=== PATIENT | female | born 1960 | race Caucasian/White ===

== ENCOUNTER 2020-06-23 10:33 | Outpatient (CLI) | payer OTHER, SELFPAY ==
[2020-06-23 11:05] LABS: Hematocrit 38.3 % (37.0-47.0); Hemoglobin 12.5 g/dL (12.0-15.0); Mean Corpuscular HGB Conc 32.6 g/dl (32-36); Mean Corpuscular Hemoglobin 27.6 pg (26-34); Mean Corpuscular Volume 84.5 fl (80-100); Mean Platelet Volume 9.8 fl (7.4-10.4); Platelet Count Result 255 k/mm3 (150-375); Red Blood Count 4.53 M/mm3 (4.2-5.4); Red Cell Distribution Width 13.1 % (11.5-14.5); White Blood Count 6.1 K/mm3 (4.5-10.0)
[2020-06-23 11:16] LABS: Alanine Aminotransferase 32 U/L (4-35); Albumin Level 4.2 g/dL (3.5-5.1); Alkaline Phosphatase 79 U/L (38-126); Anion Gap 11 mmol/L (8-16); Aspartate Amino Transferase 29 U/L (14-36); Bilirubin,Total 0.3 mg/dL (0.2-1.3); Blood Urea Nitrogen 10 mg/dL (7-17); Calcium 9.9 mg/dL (8.4-10.2); Carbon Dioxide 24 mmol/L (22-30); Chloride 106 mmol/L (98-107); Cholesterol 178 mg/dL (0-200); Estimated Glomerular Filt Rate > 60; Glucose 110 mg/dL (65-105); HDL Direct 53 mg/dL; Sodium 141 mmol/L (137-145); Triglycerides 130 mg/dL (<150)
[2020-06-23 11:28] LABS: LDL Cholesterol Direct 116 mg/dL
[2020-06-23 11:31] LABS: Hemoglobin A1C 5.8 % (<5.7)
== END 2020-06-23 10:34 | disposition home or self-care (01) ==
LOC: ANHLAB 10:36
PROVIDERS: PCP Internal Medicine; Visit Provider Internal Medicine
DX: Z00.00 Encounter for general adult medical examination without abnormal findings (principal)
CPT/HCPCS: 36415; 80053; 80061; 83036; 84443; 85027

== ENCOUNTER 2020-07-23 09:16 | Outpatient (CLI) | payer OTHER, SELFPAY ==
--- NOTE | ~2020-07-23 | MM_ITS ---
EXAMINATION: MM screening [facility] BI w emanuel HISTORY: Screening mammogram TECHNIQUE: Craniocaudal and mediolateral oblique 3-D tomosynthesis images were obtained and synthetic 2-D images were generated. CAD analysis was submitted and interpreted. COMPARISON: 07/22/2019, 07/20/2018, 07/18/2017 BREAST PARENCHYMAL COMPOSITION: The breasts are almost entirely fatty. FINDINGS: There is no evidence of suspicious mass, calcification, or architectural distortion to sugg est malignancy in either breast. There has been no suspicious interval change. IMPRESSION: 1. No mammographic evidence of malignancy. 2. Recommend routine screening mammography in one year. BI-RADS Category 1: Negative Reviewed, dictated and finalized at location A.
== END 2020-07-23 09:17 | disposition home or self-care (01) ==
PROVIDERS: PCP Internal Medicine; Visit Provider Student in an Organized Health Care Education/Training Program
DX: Z12.31 Encounter for screening mammogram for malignant neoplasm of breast (principal)
CPT/HCPCS: 77063; 77067

== ENCOUNTER 2021-04-01 14:04 | Outpatient (CLI) | payer OTHER, SELFPAY ==
[2021-04-01 14:34] LABS: Hemoglobin 12.8 g/dL (12.0-15.0); Mean Corpuscular Hemoglobin 27.4 pg (26-34); Mean Corpuscular Volume 85.7 fl (80-100); Mean Platelet Volume 9.5 fl (7.4-10.4); Platelet Count Result 257 k/mm3 (150-375); Red Blood Count 4.67 M/mm3 (4.2-5.4); Red Cell Distribution Width 13.3 % (11.5-14.5); White Blood Count 7.6 K/mm3 (4.5-10.0)
[2021-04-01 14:44] LABS: Anion Gap 9 mmol/L (8-16); Blood Urea Nitrogen 15 mg/dL (7-17); Calcium 10.1 mg/dL (8.4-10.2); Carbon Dioxide 25 mmol/L (22-30); Chloride 104 mmol/L (98-107); Estimated Glomerular Filt Rate > 60; Glucose 101 mg/dL (65-105); Magnesium 1.9 mg/dL (1.6-2.3); Potassium 4.2 mmol/L (3.4-5.0); Sodium 138 mmol/L (137-145)
== END 2021-04-01 14:05 | disposition home or self-care (01) ==
LOC: ANHLAB 14:06
PROVIDERS: PCP Internal Medicine; Visit Provider Internal Medicine
DX: Z51.81 Encounter for therapeutic drug level monitoring (principal)
CPT/HCPCS: 36415; 80048; 83735; 84443; 85027

== ENCOUNTER 2021-07-27 16:09 | Outpatient (CLI) | payer OTHER, SELFPAY ==
--- NOTE | ~2021-07-27 | MM_ITS ---
EXAMINATION: MM screening [facility] BI w emanuel HISTORY: Screening TECHNIQUE: Craniocaudal and mediolateral oblique 3-D tomosynthesis images were obtained and synthetic 2-D images were generated. CAD analysis was submitted and interpreted. COMPARISON: Comparison to multiple prior studies sequentially, with oldest reviewed study dated 11/2014. BREAST PARENCHYMAL COMPOSITION: There are scattered areas of fibroglandular density. FINDINGS: There is no evidence of suspicious mass, calcification, or architectural distortion to sugg est malignancy in either breast. There has been no suspicious interval change. IMPRESSION: 1. No mammographic evidence of malignancy. 2. Recommend routine screening mammography in one year. BI-RADS Category 1: Negative Reviewed, dictated and finalized at location A.
== END 2021-07-27 16:10 | disposition home or self-care (01) ==
LOC: ANHIMG 16:13
PROVIDERS: PCP Internal Medicine; Visit Provider Student in an Organized Health Care Education/Training Program
DX: Z12.31 Encounter for screening mammogram for malignant neoplasm of breast (principal)
CPT/HCPCS: 77063; 77067

== ENCOUNTER 2022-07-12 06:57 | Outpatient (CLI) | payer OTHER, SELFPAY ==
[2022-07-12 07:32] LABS: Basophils Absolute Auto 0.1 K/mm3 (0.0-0.1); Basophils Percent Auto 1.1 % (0.2-1.2); Eosinophils Absolute Auto 0.2 K/mm3 (0-0.3); Eosinophils Percent Auto 2.8 % (0-4.4); Hematocrit 38.7 % (37.0-47.0); Hemoglobin 12.6 g/dL (12.0-15.0); Immature Granulocyte Absolute 0.06 K/mm3 (0.00-0.031); Immature Granulocyte Percent A 0.9 % (0-0.5); Lymphocytes Absolute Auto 1.84 K/mm3 (0.9-3.2); Lymphocytes Percent Auto 28.8 % (18.3-44.2); Mean Corpuscular HGB Conc 32.6 g/dl (32-36); Mean Platelet Volume 9.9 fl (7.4-10.4); Monocytes Absolute Auto 0.5 K/mm3 (0.1-0.6); Monocytes Percent Auto 7.5 % (2.6-8.5); Neutrophils Absolute Auto 3.8 K/mm3 (1.3-6.7); Neutrophils Percent Auto 58.9 % (45.5-73.1); Platelet Count Result 269 k/mm3 (150-375); Red Blood Count 4.66 M/mm3 (4.2-5.4); White Blood Count 6.4 K/mm3 (4.5-10.0)
[2022-07-12 07:34] LABS: Alanine Aminotransferase 36 U/L (6-35); Albumin Level 4.5 g/dL (3.5-5.1); Alkaline Phosphatase 81 U/L (38-126); Anion Gap 9 mmol/L (8-16); Aspartate Amino Transferase 31 U/L (14-36); Bilirubin,Total 0.3 mg/dL (0.2-1.3); Blood Urea Nitrogen 13 mg/dL (7-17); Calcium 9.6 mg/dL (8.4-10.2); Carbon Dioxide 24 mmol/L (22-30); Chloride 104 mmol/L (98-107); Cholesterol 181 mg/dL (0-200); Estimated Glomerular Filt Rate > 60; Glucose 120 mg/dL (65-110); HDL Direct 53 mg/dL; Potassium 4.1 mmol/L (3.4-5.0); Sodium 137 mmol/L (137-145); Triglycerides 145 mg/dL (<150)
[2022-07-12 07:45] LABS: LDL Cholesterol Direct 96 mg/dL
[2022-07-12 08:09] LABS: Free T4 Free Thyroxine 1.35 ng/mL (0.78-2.19)
[2022-07-12 08:15] LABS: Hemoglobin A1C 6.2 % (<5.7)
== END 2022-07-12 06:58 | disposition home or self-care (01) ==
PROVIDERS: PCP Internal Medicine; Visit Provider Internal Medicine
DX: Z00.00 Encounter for general adult medical examination without abnormal findings (principal)
CPT/HCPCS: 36415; 80053; 80061; 83036; 84439; 84443; 85025

== ENCOUNTER 2022-10-05 15:15 | Outpatient (CLI) | payer OTHER, SELFPAY ==
--- NOTE | ~2022-10-05 | MM_ITS ---
EXAMINATION: MM screening [facility] BI w emanuel HISTORY: Screening mammogram TECHNIQUE: Craniocaudal and mediolateral oblique 3-D tomosynthesis images were obtained and synthetic 2-D images were generated. CAD analysis was submitted and interpreted. COMPARISON: 07/27/2021, 07/23/2020, 07/22/2019 bilateral screening mammogram examinations BREAST PARENCHYMAL COMPOSITION: There are scattered areas of fibroglandular density. FINDINGS: There is no evidence of suspicious mass, calcification, or architectural distortion to sugg est malignancy in either breast. There has been no suspicious interval change. IMPRESSION: 1. No mammographic evidence of malignancy. 2. Recommend routine screening mammography in one year. BI-RADS Category 1: Negative Reviewed, dictated and finalized at location A. ORATE STRATEGY ANALYST
== END 2022-10-05 15:16 | disposition home or self-care (01) ==
LOC: ANHIMG 15:17
PROVIDERS: PCP Internal Medicine; Visit Provider Internal Medicine
DX: Z12.31 Encounter for screening mammogram for malignant neoplasm of breast (principal)
CPT/HCPCS: 77063; 77067

== ENCOUNTER 2023-07-07 03:47 | Day surgery (SDC) | payer OTHER, SELFPAY ==
[2023-06-26 13:51] VITALS: BMI 31.4
[2023-07-07 07:39] VITALS: BP 129/84; PULSE 64; RESP 18; TEMP 36.4; O2SAT 100; BMI 30.9
[2023-07-07] MEDS: LACTATED RINGERS 1,000 ML 150 ML IV CONT (07:42)
--- NOTE | 2023-07-07 08:06 | WPDANESEPPF ---
Anes - Initial Pre Proc Eval Procedure: Operation Date: 07/07/23 08:30 Proposed Procedures p Screening Colonoscopy - Greg Navarro MD Date/Time: 07/07/23 08:06 Surgeon: Greg Navarro MD Pre Op Diagnosis: neoplasm screening Patient Data Age: 62 Gender: F Height: 1.6 m Weight: 79.1 kg Last Vital Signs Temp 97.5 F L 07/07/23 07:39 Pulse 64 07/07/23 07:39 Resp 18 07/07/23 07:39 BP 129/84 07/07/23 07:39 Pulse Ox 100 07/07/23 07:39 O2 Del Method Room Air 07/07/23 07:39 Allergies Allergy/AdvReac Type Severity Reaction Status Date / Time ESTEPHANIA Inhibitors Allergy Unknown Unknown Verified 07/07/23 07:36 aspartame Allergy Unknown unknown Verified 07/07/23 07:36 Penicillins Allergy Unknown Unknown Verified 07/07/23 07:36 Home Medications Medication Instructions Recorded Confirmed Type aspirin 325 mg tablet 325 mg PO DAILY 06/23/20 07/07/23 History calcium carbonate 600 mg-vitamin 1 cap PO DAILY 06/23/20 07/07/23 History D3 12.5 mcg (500 unit) capsule (Calcium 600 with Vitamin D3) furosemide 20 mg tablet 20 mg PO QAM 06/23/20 07/07/23 History multivitamin (Multiple Vitamins 1 tablet PO DAILY 06/23/20 07/07/23 History tablet) olmesartan 40 mg tablet 40 mg PO DAILY 06/23/20 07/07/23 History Patient hx anesthesia problems: none Family hx anesthesia problems: none Results Review: All pre-operative results and documents have been reviewed as part of the pre-operative evaluation. [facility] Past Medical History Medical History History of vaginal delivery Hypertension Surgical History Surgical History History of colonoscopy Tubal ligation status Family History Family History Grandparent Diabetes mellitus Sibling Diabetes mellitus Father Hypertension, Onset Age: 38 Cerebrovascular accident Carcinoma of colon, Onset Age: 56 Mother Hypertension Social History Social History Smoking status: Never smoker Alcohol intake: never Substance use: never Substance use type: does not use Lack of Transportation: No Lack of Food: Never True Current Housing: I Have Housing Concerned About Future Housing: No Difficulty Paying Gas/Electric Bills: No Difficulty Paying for Meds: No Currently Unemployed: No Education: Master's Degree or Higher Difficulty w/ Childcare or Family Care: No Living arrangements: with family Spiritual care concerns: No Anes - Eval Final PreProcedure Day of Procedure 07/07/23 08:06 Patient weight: obese Heart: regular rate and rhythm Lungs: clear to auscultation Airway: Mallampati scale class II Neurological: alert and oriented Last oral intake: >/= 8 hours ASA classification: II Emergent: no Anesthetic plan: proceed Anesthesia type and monitoring: general GIVS and standard monitoring Results Review: All pre-operative results and documents have been reviewed as part of the pre-operative evaluation. Informed Consent: The patient's anesthetic plan and its attendant risks and benefits were discussed with the patient/family/POA. Questions were solicited and answers provided to the satisfaction of the patient/family/POA.
--- NOTE | 2023-07-07 08:16 | PM.HPGS ---
History of Present Illness History of Present Illness Consent: Risks, benefits, and alternatives have been discussed and questions answered. Patient agrees to proceed with procedure. Chief complaint: neoplasm screening Narrative: Julita Mancia is a 62 year old female referred for colon cancer screening. Her last colonoscopy was about 10 years ago. Review of Systems Review of Systems: All systems reviewed & are unremarkable except as noted in HPI and below PMFSH Past Medical History Medical History History of vaginal delivery Hypertension Surgical History Surgical History History of colonoscopy Tubal ligation status Family History Family History Grandparent Diabetes mellitus Sibling Diabetes mellitus Father Hypertension, Onset Age: 38 Cerebrovascular accident Carcinoma of colon, Onset Age: 56 Mother Hypertension Social History Social History Smoking status: Never smoker Alcohol intake: never Substance use: never Substance use type: does not use Lack of Transportation: No Lack of Food: Never True Current Housing: I Have Housing Concerned About Future Housing: No Difficulty Paying Gas/Electric Bills: No Difficulty Paying for Meds: No Currently Unemployed: No Education: Master's Degree or Higher Difficulty w/ Childcare or Family Care: No Living arrangements: with family Spiritual care concerns: No Meds Home Medications and Allergies Home Medications Medication Instructions Recorded Confirmed Type aspirin 325 mg tablet 325 mg PO DAILY 06/23/20 07/07/23 History calcium carbonate 600 mg-vitamin 1 cap PO DAILY 06/23/20 07/07/23 History D3 12.5 mcg (500 unit) capsule (Calcium 600 with Vitamin D3) furosemide 20 mg tablet 20 mg PO QAM 06/23/20 07/07/23 History multivitamin (Multiple Vitamins 1 tablet PO DAILY 06/23/20 07/07/23 History tablet) olmesartan 40 mg tablet 40 mg PO DAILY 06/23/20 07/07/23 History Allergies Allergy/AdvReac Type Severity Reaction Status Date / Time ESTEPHANIA Inhibitors Allergy Unknown Unknown Verified 07/07/23 07:36 aspartame Allergy Unknown unknown Verified 07/07/23 07:36 Penicillins Allergy Unknown Unknown Verified 07/07/23 07:36 Vital Signs Vital Signs - 24 hr 07/07/23 07:39 Temperature 36.4 C L Pulse Rate 64 Respiratory Rate 18 Blood Pressure 129/84 Pulse Oximetry 100 Oxygen Delivery Room Air Exam Const: General: alert Orientation/consciousness: patient oriented x3 Resp: Auscultation: clear to auscultation bilaterally Cardio: Rhythm: regular rhythm GI: GI Palp: Yes Soft to palpation and No Tenderness to palpation present (GI) Neuro: General: patient oriented x3 Assessment and Plan Assessment and plan (1) Colon cancer screening: Code(s): Z12.11 - Encounter for screening for malignant neoplasm of colon Status: Acute Assessment and Plan: Colonoscopy with possible biopsy or polypectomy or cautery or injection of substances.
[2023-07-07] MEDS: SIMETHICONE ORAL SUSPENSION 20 MG/0.3 ML 30 ML BOTTLE 0.6 ML IRRIGATION (09:02)
[2023-07-07 09:09] VITALS: BP 150/87; PULSE 80; RESP 25; O2SAT 100
[2023-07-07 09:19] VITALS: BP 150/87; PULSE 78; RESP 24; O2SAT 100
[2023-07-07 09:29] VITALS: BP 162/97; PULSE 75; RESP 25; O2SAT 100
== END 2023-07-07 09:33 | disposition home or self-care (01) ==
PROVIDERS: PCP Internal Medicine; Visit Provider Internal Medicine Gastroenterology
PROC: 0DJD8ZZ Inspection of Lower Intestinal Tract, Via Natural or Artificial Opening Endoscopic (ICD-10-PCS; CPT 45378; principal; 2023-07-07 08:30)
DX: Z12.11 Encounter for screening for malignant neoplasm of colon (principal); K57.30 Diverticulosis of large intestine without perforation or abscess without bleeding; I10 Essential (primary) hypertension; E66.9 Obesity, unspecified; Z68.30 Body mass index [BMI] 30.0-30.9, adult
CPT/HCPCS: 45378; J2704; J7120

== ENCOUNTER 2023-08-23 09:47 | Outpatient (CLI) | payer OTHER, SELFPAY ==
[2023-08-23 10:28] LABS: Basophils Absolute Auto 0.1 K/mm3 (0.0-0.1); Basophils Percent Auto 0.8 % (0.2-1.2); Eosinophils Absolute Auto 0.2 K/mm3 (0-0.3); Eosinophils Percent Auto 3.7 % (0-4.4); Hemoglobin 12.1 g/dL (12.0-15.0); Immature Granulocyte Absolute 0.01 K/mm3 (0.00-0.031); Immature Granulocyte Percent A 0.2 % (0-0.5); Lymphocytes Absolute Auto 1.74 K/mm3 (0.9-3.2); Lymphocytes Percent Auto 29.1 % (18.3-44.2); Mean Corpuscular HGB Conc 31.8 g/dl (32-36); Mean Corpuscular Hemoglobin 27.4 pg (26-34); Mean Corpuscular Volume 86.2 fl (80-100); Mean Platelet Volume 9.8 fl (7.4-10.4); Monocytes Absolute Auto 0.5 K/mm3 (0.1-0.6); Monocytes Percent Auto 7.5 % (2.6-8.5); Neutrophils Absolute Auto 3.5 K/mm3 (1.3-6.7); Neutrophils Percent Auto 58.7 % (45.5-73.1); Platelet Count Result 238 k/mm3 (150-375); Red Blood Count 4.41 M/mm3 (4.2-5.4); Red Cell Distribution Width 13.4 % (11.5-14.5)
[2023-08-23 10:45] LABS: Alanine Aminotransferase 32 U/L (6-35); Albumin Level 4.1 g/dL (3.5-5.1); Alkaline Phosphatase 82 U/L (38-126); Anion Gap 9 mmol/L (8-16); Aspartate Amino Transferase 25 U/L (14-36); Bilirubin,Total 0.5 mg/dL (0.2-1.3); Blood Urea Nitrogen 14 mg/dL (7-17); Calcium 9.8 mg/dL (8.4-10.2); Carbon Dioxide 22 mmol/L (22-30); Chloride 107 mmol/L (98-107); Cholesterol 187 mg/dL (0-200); Estimated Glomerular Filt Rate > 60; Glucose 107 mg/dL (65-110); HDL Direct 49 mg/dL; Potassium 4.1 mmol/L (3.4-5.0); Sodium 138 mmol/L (137-145); Triglycerides 179 mg/dL (<150)
[2023-08-23 10:56] LABS: LDL Cholesterol Direct 102 mg/dL
[2023-08-23 11:42] LABS: Hemoglobin A1C 5.8 % (<5.7)
== END 2023-08-23 09:48 | disposition home or self-care (01) ==
LOC: ANHLAB 09:50
PROVIDERS: PCP Internal Medicine
DX: Z00.00 Encounter for general adult medical examination without abnormal findings (principal); Z13.9 Encounter for screening, unspecified
CPT/HCPCS: 36415; 80053; 80061; 83036; 84443; 85025

== ENCOUNTER 2023-12-14 15:04 | Outpatient (CLI) | payer OTHER, SELFPAY ==
--- NOTE | ~2023-12-14 | DEXA_ITS ---
Bone Density Report Name: ADITI GARCÍA Age: 63 Sex: Female Ethnicity: White Date of : 1960 Indication: postmenopausal; screening for osteoporosis; Referring Provider: LUCAS BURROWS Study: Bone densitometry was performed. Exam Date: December 14, 2023 Accession number: [id number] Bone Density: Region BMD T-score Z-score Classification AP Spine(L1-L4) 0.924 -1.1 0.4 Osteopenia Femoral Neck (Left) 0.704 -1.3 0.1 Osteopenia Total Hip (Left) 0.931 -0.1 1.0 Normal Femoral Neck (Right) 0.777 -0.7 0.7 Normal Total Hip (Right) 0.939 0.0 1.0 Normal Total Hip Mean 0.935 -0.1 1.0 Normal World Health Organization criteria for BMD impression classify patients as: Normal (T-score at or above -1.0), Osteopenia (T-score between -1.0 and -2.5), or Osteoporosis (T-score at or below -2.5). 10-year Fracture Risk(1): Major Osteoporotic Fracture 7.6% Hip Fracture 0.6% Reported Risk Factors: [place] (), Neck BMD=0.704, BMI=32.1 (1) FRAX(R) Version 3.08. Fracture probability calculated for an untreated patient. Fracture probability may be lower if the patient has received treatment. Previous Exams: Region Exam Age BMD T-score BMD Change BMD Change Date g/cm2 vs Baseline vs Previous AP Spine (L1-L4) 12/14/2023 63 0.924 -1.1 -0.088 (-8.7%) -0.088 (-8.7%) 07/22/2019 58 1.012 -0.3 Total Hip(Left) 12/14/2023 63 0.931 -0.1 -0.045 (-4.6%) -0.045 (-4.6%) 07/22/2019 58 0.976 0.3 Total Hip(Right) 12/14/2023 63 0.939 0.0 -0.047 (-4.8%) -0.047 (-4.8%) 07/22/2019 58 0.986 0.4 *Denotes significance at 95% confidence level, LSC for AP Spine = 0.022 g/cm2, LSC for Total Hip = 0.027 g/cm2 # Denotes dissimilar scan types or analysis methods Clinical Information Provided by Patient: Has used the following medications: Vitamin D, Calcium Patient maximum height was 63 Menopause Age: 51 Drinks caffeinated beverages Onset of menses at age 15 Number of children 2 Impression: The patient has low bone mass, based on the Left Femoral Neck T-score. The patient has an estimated ten-year risk of hip fracture of 0.6% and an estimated ten-year risk of major fracture of 7.6%, based on the WHO FRAX algorithm. No significant bone loss was observed. Discussion: BONE DENSITY IS LOW AT ONE OR MORE SKELETAL SITES. This patient's lowest T-score is low at one or more skeletal sites. It meets the World Health Organization's (WH
== END 2023-12-14 15:05 | disposition home or self-care (01) ==
LOC: ANHIMG 15:06
PROVIDERS: PCP Internal Medicine; Visit Provider Obstetrics & Gynecology
DX: R29.890 Loss of height (principal); M85.88 Other specified disorders of bone density and structure, other site
CPT/HCPCS: 77080

== ENCOUNTER 2024-07-16 07:08 | Outpatient (CLI) | payer OTHER, SELFPAY ==
[2024-07-16 07:55] LABS: Hemoglobin A1C 6.6 % (<5.7)
[2024-07-16 07:58] LABS: Alanine Aminotransferase 33 U/L (6-35); Albumin Level 4.2 g/dL (3.5-5.1); Alkaline Phosphatase 74 U/L (38-126); Anion Gap 10 mmol/L (4-12); Aspartate Amino Transferase 25 U/L (14-36); Bilirubin,Total 0.4 mg/dL (0.2-1.3); Blood Urea Nitrogen 20 mg/dL (7-17); Calcium 9.8 mg/dL (8.4-10.2); Carbon Dioxide 25 mmol/L (22-30); Chloride 104 mmol/L (98-107); Cholesterol 179 mg/dL (0-200); Estimated Glomerular Filt Rate > 60; Glucose 131 mg/dL (65-110); HDL Direct 54 mg/dL; Potassium 4.1 mmol/L (3.4-5.0); Sodium 139 mmol/L (137-145); Triglycerides 151 mg/dL (<150)
[2024-07-16 08:09] LABS: LDL Cholesterol Direct 95 mg/dL
[2024-07-16 08:14] LABS: Hematocrit 38.4 % (37.0-47.0); Hemoglobin 12.8 g/dL (12.0-15.0); Mean Corpuscular HGB Conc 33.3 g/dl (32-36); Mean Corpuscular Hemoglobin 28.3 pg (26-34); Mean Platelet Volume 10.2 fl (7.4-10.4); Platelet Count Result 240 k/mm3 (150-375); Red Blood Count 4.52 M/mm3 (4.2-5.4); Red Cell Distribution Width 13.4 % (11.5-14.5); White Blood Count 6.3 K/mm3 (4.5-10.0)
[2024-07-16 10:27] LABS: Hepatitis C Virus Antibody Negative (Negative)
[2024-07-17 07:58] LABS: Hepatitis B Core Ab Total NON-REACTIVE (NON-REACTIVE)
== END 2024-07-16 07:09 | disposition home or self-care (01) ==
PROVIDERS: PCP Internal Medicine; Visit Provider Internal Medicine
DX: Z00.00 Encounter for general adult medical examination without abnormal findings (principal); Z11.59 Encounter for screening for other viral diseases
CPT/HCPCS: 36415; 80053; 80061; 83036; 85027; 86704; 86803

== ENCOUNTER 2024-09-03 15:24 | Outpatient (CLI) | payer OTHER, SELFPAY ==
--- NOTE | ~2024-09-03 | MM_ITS ---
EXAMINATION: MM screening [facility] BI w emanuel HISTORY: Screening TECHNIQUE: Craniocaudal and mediolateral oblique 3-D tomosynthesis images were obtained and synthetic 2-D images were generated. CAD analysis was submitted and interpreted. COMPARISON: Comparison to multiple prior studies sequentially, with oldest reviewed study dated 06/26. BREAST PARENCHYMAL COMPOSITION: Not dense: There are scattered areas of fibroglandular density. FINDINGS: There is no evidence of suspicious mass, calcification, or architectural distortion to sugg est malignancy in either breast. There has been no suspicious interval change. IMPRESSION: 1. No mammographic evidence of malignancy. 2. Recommend routine screening mammography in one year. BI-RADS Category 1: Negative Reviewed, dictated and finalized at location B. F STEWARD/STEWARDESS
== END 2024-09-03 15:25 | disposition home or self-care (01) ==
LOC: ANHIMG 15:25
PROVIDERS: PCP Internal Medicine; Visit Provider Obstetrics & Gynecology
DX: Z12.31 Encounter for screening mammogram for malignant neoplasm of breast (principal)
CPT/HCPCS: 77063; 77067

== ENCOUNTER 2025-07-21 09:03 | Outpatient (CLI) | payer OTHER, SELFPAY ==
--- OUTSIDE RECORDS SUMMARY | 2008-02-14 04:01 | XMS_ITS | Continuity of Care Document ---
Author Organization [facility] Address [address] [place] [address] [address] [place] [address] Phone Care Team Providers Care Php Wordpress Developer Name Role Phone Rita Le Unavailable Unavailable Procedures Procedure Date Eye Exam & Treatment Refraction Advance Directives Directive Yes / No Effective Date File Name No Information Encounters Encounter Description Practice Location Reason(s) For Visit Diagnoses Date Provider Providers Copied on Encounter [facility], [address] [place] [address] [address], [place], [place], [id number], [place] tel:[phone] [facility] No Information [address] Salinas. [address] [facility] , [address], [place], [address], [place]. tel:[phone] Family History Family Member Type Diagnosis Age At Onset No Information Payers Payer name Insurance type Covered green party ID Authoriza tion(s) No Information Social History Type Description Quantity Date Captured Comments Sex Female Smoking Status No Information Chief Complaint And Reason For Visit No Information Reason For Referral Reason For Referral No Information History Of Present Illness Encounter Date Complaint History Of Prese nt Illness No Information Functional Status Date Functional Assessmen t No Information Instructions Date Instruction Additional Infor mation No Information Assessments Type Assessment Date No Information Patient Care Teams Name Effective Dates (start - stop) Status Members No Information
--- OUTSIDE RECORDS SUMMARY | 2025-07-21 09:49 | XMS_ITS | Clinical Summary ---
Author Organization [facility] Address [address] [place] [address] Care Team Providers Care Milling Operator Name Role Phone Louis Kauffman MD Primary Care Provider [phone] Allergies Active Allergy Reactions Criticality Noted Date Comments Amos Inhibitors Aspartame Penicillins Medications calcium carbonate-vitam in D3 (OS-MARCELL 500 + D3) 1,250mg (500mg elemental) - 200 units per tablet take 1 by Oral route every day 0 0 3 Active olmesartan (BENICAR) 40 mg tablet Take 1 tablet (40 mg total) by mouth daily 90 tablet 3 5 Active furosemide (LASIX) 20 mg tablet Take 1 tablet (20 mg total) by mouth daily 90 tablet 3 5 Active tirzepatide (Mounjaro) 5 mg/0.5 mL pen injector injectionIndica tions:type 2 diabetes mellitus Inject 0.5 mL (5 mg total) under the skin every 7 days 2 mL 11 5 Active tirzepatide (Mounjaro) 2.5 mg/0.5 mL pen injector injectionIndica tions:type 2 diabetes mellitus Inject 0.5 mL (2.5 mg total) under the skin every 7 days 2 mL 11 5 07/17/20 25 Discontinu ed(Alterna te therapy) Active Problems Problem Noted Date Diagnosed Date Encounter for annual general medical examination without abnormal findings in adult 07/17/2025 Assessment & Plan (07/17/2025 7:46 AM CDT): Reviewed diet and exercise goals. Await labs. Reviewed goal BMI. Advised annual Flu vaccine. Reviewed immunization and screening status.She is current on colonoscopy. Advised annual mammogram. Hypertension is controlled. Continue current regimen. Titrate Mounajro for Diabetes. Palpitations 04/01/2021 Assessment & Plan (04/01/2021 10:40 AM CDT): EKG shows normal sinus rhytm with ventricular rate of 67, normal axis. No st changes. Order Holter monitor and echo. Consider sleep study if no clear etiology. Class 1 obesity due to exces s calories without serious comorbidity with body mass index (BMI) of 31.0 to 31.9 in adult 06/07/2018 Assessment & Plan (06/07/2018 8:25 AM CDT): BMI is more than 30, reviewed calorie restrictions. Annual physical exam 05/31/2017 Assessment & Plan (07/15/2024 5:30 AM CDT): Reviewed diet and exercise goals. Await labs. Reviewed goal BMI. Advised annual Flu vaccine. Reviewed immunization and screening status.She is current on colonoscopy. Advised annual mammogram. Hypertension is controlled. Continue current regimen. Assessment & Plan (07/05/2022 4:53 AM CDT): Reviewed diet and exercise goals. Await labs. Reviewed goal BMI. Advised annual Flu vaccine. Reviewed immunization and screening status.She is current on colonoscopy. Advised annual mammogram. Hypertension is controlled. Continue current regimen. Assessment & Plan (06/22/2021 5:35 AM CDT): Reviewed diet and exercise goals. Await labs. Reviewed goal BMI. Advised annual Flu vaccine. Reviewed immunization and screening status.She is current on colonoscopy. Advised annual mammogram. Hypertension is controlled. Continue current regimen. Assessment & Plan (06/22/2020 6:23 AM CDT): Reviewed diet and exercise goals. Await labs. Reviewed goal BMI. Advised annual Flu vaccine. Reviewed immunization and screening status.She is current on colonoscopy. Advised annual mammogram. Hypertension is controlled. Continue current regimen. Assessment & Plan (06/07/2018 7:05 AM CDT): Reviewed diet and exercise goals. Await Annual labs. Reviewed immunization and screening status. She is current on colonoscopy and mammogram. Hypertension is controlled. Continue current regimen. Assessment & Plan (05/31/2017 3:21 PM CDT): Reviewed diet and exercise goals. Await Annual labs. Reviewed immunization and screening status. Hypertension is controlled. Continue current regimen. Removed low sodium diet. Hypertension 02/08/2014 Overview (12/29/2016): HYPERTENSION NOS Assessment & Plan (04/01/2021 10:38 AM CDT): Hypertension is controlled. Continue current regimen. Encounters Date Type Department Care Team Description 07/17/2025 7:45 AM CDT Office Visit [address] [place] [address] Louis Kauffman MD Encounter for annual general medical examination without abnormal findings in adult (Primary Dx); Type 2 diabetes mellitus with other specified complication, without long-term current use of insulin from Last 3 Months Immunizations Immunization Administration Dates Next Due Influenza, Quadrivalent, Spl it, Preservative Free, Intramuscular 06/25/2015 Influenza, Trivalent, IM (MDV) 06/25/2012 Influenza, Unspecified 07/05/2024,2022(Deferred: Patient Refused),06/16/2020,06/16/2020 Pfizer SARS-CoV-2 Monovalent Vaccination (12+ Yrs) PURPLE 10/03/2020,09/12/2020 Pfizer Sars-Cov-2 Bivalent V accination (12+ YRS) 06/09/2022 Surgical History Surgery Date Site/Laterality Comments TUBAL LIGATION 1991 Bilateral tubal ligation Medical History Medical History Date Comments Pneumonia right lobe Bronchitis Bacterial sinusitis Social History Tobacco Use Types Packs/Day Years Used Date Smoking Tobacco: Never Smokeless Tobacco: Never Tobacco Cessation:Counseling Given: Not Answered Alcohol Use Standard Drinks/Week Comments No 0 (1 standard drink = 0.6 oz pur e alcohol) PHQ-2 Answer Date Recorded PHQ-2 Total Score (If total score is 3 or more points, staff should administer the PHQ-9) 0 07/17/2025 Comments Unknown Sex and Gender Information Value Date Recorded Sex Assigned at Not on file Legal 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 Gender Identity Female 03/31/2021 7:34 AM CDT Sexual Orientation Not on file Obstetrics History Last Filed Vital Signs Vital Sign Reading Time Taken Comments Blood Pressure 122/60 07/17/2025 7:29 AM CDT Pulse 64 07/17/2025 7:29 AM CDT Temperature 36.6 C (97.8 F) 07/17/2025 7:29 AM CDT Respiratory Rate 20 07/17/2025 7:29 AM CDT Oxygen Saturation 99% 07/17/2025 7:29 AM CDT Inhaled Oxygen Concentration - - Weight 80.6 kg (177 lb 9.6 oz) 07/17/2025 7:29 A M CDT Height 160 cm (5' 2.99) 07/17/2025 7:29 AM CDT Body Mass Index 31.47 07/17/2025 7:29 AM CDT Plan of Treatment Health Maintenance Due Date Last Done Comments Albumin Creatinine Ratio, Urine 1960 Cervical Cancer Screening 1960 Hemoglobin A1C 1960 Hepatitis C Screening 1960 eGFR 1960 Dilated Eye Exam 1960 Foot Exam 1960 Lipid Panel 1961 Hepatitis B Screening 1979 Pneumococcal vaccine <65 (1 of 2 - PCV) 1980 Zoster Vaccine (1 of 2) 2011 Breast Cancer Screening-Mammogram 10/05/2023 10/05/2022, 07/19/2017, 07/15/2016 Covid-19 Vaccine (5 - 2024-2 6 season) 2025 06/09/2022, 07/02/2021, 10/03/2020, Additional history exists Influenza Vaccine (#1) 2025 , 07/23/2021, 06/16/2020, Additional history exists Depression Screening 07/17/2026 07/17/2025, 07/15/2024, 07/12/2023, Additional history exists Regular Well Visit/Exam 18-64 07/17/2026, 07/15/2024, 07/12/2023, Additional history exists Colon Cancer Screening-Colonoscopy 09/28/2031 09/28/2021, 10/03/2012 DTaP/Tdap/Td Vaccine (2 - Td or Tdap) 06/13/2033 06/13/2023 Colon Cancer Screening-CT Colonography Discontinued 09/28/2021, 10/03/2012 Colon Cancer Screening-DNA Stool Discontinued 09/28/19 22, 10/03/2012 Colon Cancer Screening-FIT Discontinued 09/28/2021, Colon Cancer Screening-Sigmoidoscopy Discontinued 09/28/2021, 10/03/2012 Procedures Procedure Name Priority Date/Time Associated Diagnosis Comments MAMMOGRAPHY Routine 10/05/2022 COLONOSCOPY Routine 09/28/2021 from Last 3 Months or Most Recently Relevant to Health Maintenance Results * MAMMOGRAPHY (10/05/2022) Mammography Normal us Historical Provider HEALTH MAINTENANCE Final Result * COLONOSCOPY (09/28/2021) Scribed Colonoscopy Normal us Historical Provider HEALTH MAINTENANCE Final Result from Last 3 Months or Most Recently Relevant to Health Maintenance Insurance [facility] Care Teams Milling Operator Relationship Specialty Start Date End Date Louis Kauffman MD PCP - General 04/27/09
[2025-07-21 09:55] LABS: Hematocrit 41.0 % (37.0-47.0); Hemoglobin 13.2 g/dL (12.0-15.0); Mean Corpuscular HGB Conc 32.2 g/dl (32-36); Mean Corpuscular Hemoglobin 28.0 pg (26-34); Mean Corpuscular Volume 86.9 fl (80-100); Platelet Count Result 256 k/mm3 (150-375); Red Blood Count 4.72 M/mm3 (4.2-5.4); White Blood Count 6.4 K/mm3 (4.5-10.0)
[2025-07-21 10:21] LABS: Alanine Aminotransferase 31 U/L (6-35); Albumin Level 4.4 g/dL (3.5-5.1); Alkaline Phosphatase 74 U/L (38-126); Anion Gap 7 mmol/L (4-12); Aspartate Amino Transferase 28 U/L (14-36); Bilirubin,Total 0.4 mg/dL (0.2-1.3); Blood Urea Nitrogen 18 mg/dL (7-17); Calcium 9.3 mg/dL (8.4-10.2); Carbon Dioxide 23 mmol/L (22-30); Chloride 107 mmol/L (98-107); Cholesterol 189 mg/dL (0-200); Estimated Glomerular Filt Rate > 60; Glucose 95 mg/dL (65-110); HDL Direct 59 mg/dL; Potassium 4.2 mmol/L (3.4-5.0); Sodium 137 mmol/L (137-145); Total Protein 7.2 g/dL (6.3-8.2); Triglycerides 119 mg/dL (<150)
[2025-07-21 10:29] LABS: Hemoglobin A1C 5.5 % (<5.7)
[2025-07-21 10:37] LABS: MALB Creatinine Ratio 10.6 mg/g (0-30)
== END 2025-07-21 09:04 | disposition home or self-care (01) ==
PROVIDERS: PCP Internal Medicine; Visit Provider Internal Medicine
DX: Z00.00 Encounter for general adult medical examination without abnormal findings (principal); E11.69 Type 2 diabetes mellitus with other specified complication
CPT/HCPCS: 36415; 80053; 80061; 82043; 83036; 85027

== ENCOUNTER 2025-09-10 15:29 | Outpatient (CLI) | payer OTHER, SELFPAY ==
--- NOTE | ~2025-09-10 | MM_ITS ---
EXAMINATION: MM screening walt BI w emanuel HISTORY: Screening TECHNIQUE: Craniocaudal and mediolateral oblique 3-D tomosynthesis images were obtained and synthetic 2-D images were generated. CAD analysis was submitted and interpreted. COMPARISON: Comparison to multiple prior studies sequentially, with oldest reviewed study dated , 07/22/2019 BREAST PARENCHYMAL COMPOSITION: Not Dense: The breasts are almost entirely fatty. FINDINGS: There is no evidence of suspicious mass, calcification, or architectural distortion to suggest malignancy in either breast. IMPRESSION: 1. No mammographic evidence of malignancy. 2. Recommend routine screening mammography in one year. BI-RADS Category 1: Negative Reviewed, dictated and finalized at location A. [employer] CON[employer] SUPERINTENDENT
--- OUTSIDE RECORDS SUMMARY | 2025-09-10 17:58 | XMS_ITS | Clinical Summary ---
Author Organization [facility] Address [address] [place] [address] Care Team Providers Care Sizing Sprayer Name Role Phone Louis Kauffman MD Primary Care Provider [phone] Allergies Active Allergy Reactions Criticality Noted Date Comments Amos Inhibitors Aspartame Penicillins Medications calcium carbonate-vitami n D3 (OS-MARCELL 500 + D3) 1,250mg (500mg elemental) - 200 units per tablet take 1 by Oral route every day 0 0 05/13/2013 Active olmesartan (BENICAR) 40 mg tablet Take 1 tablet (40 mg total) by mouth daily 90 tablet 3 11/14/2024 Active furosemide (LASIX) 20 mg tablet Take 1 tablet (20 mg total) by mouth daily 90 tablet 3 11/14/2024 Active tirzepatide (Mounjaro) 7.5 mg/0.5 mL pen injector injectionIndicat ions:type 2 diabetes mellitus Inject 0.5 mL (7.5 mg total) under the skin every 7 days 2 mL 11 08/11/2025 Active Active Problems Problem Noted Date Diagnosed Date [...] Encounters Date Type Department Care Team Description 08/14/2025 Orders Only [facility] [address] [place] [id number] Scanning, Provider 08/14/[address] [phone] Louis Kauffman MD PRIOR AUTHORIZATION FOR MAGDI 08/11/2025 Orders Only [address] [phone] Louis Kauffman MD 07/22/2025 Orders Only [facility] [facility] Information [facility] [address] [place] [id number] Scanning, Provider 07/17/2025 7:45 AM CDT Office Visit [address] [phone] Louis Kauffman MD Encounter for annual general [...] History Surgery Date Site/Laterality Comments TUBAL LIGATION 1992 Bilateral tubal ligation Medical History Medical History [...] on file Legal Sex Female 1:50 PM [employer]IVE [employer] Gender Identity Female 03/31/2021 7:34 AM CDT Sexual Orientation Not on file Last Filed Vital Signs Vital Sign Reading [...] Screening-Mammogram 10/05/2023 10/05/2022, 07/19/2017, 07/15/2016 Covid-19 Vaccine (2024-2 6 season) 2025 06/09/2022, 07/02/2021, 10/03/2020, Additional [...] 09/28/2021, 10/03/2012 Colon Cancer Screening-DNA Stool Discontinued 09/28/19, 10/03/2012 Colon Cancer Screening-FIT Discontinued 09/28/2021, Colon Cancer Screening-Sigmoidoscopy Discontinued 09/28/2021, 10/03/2012 Procedures Procedure Name Priority Date/Time Associated Diagnosis Comments 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 SCAN - LABS 07/22/2025 2:55 PM CDT SCAN - LABS 07/22/2025 11:39 AM CDT SCAN - LABS 07/17/2025 7:24 AM CDT MAMMOGRAPHY Routine 10/05/2022 COLONOSCOPY Routine 09/28/2021 from Last 3 Months or Most Recently Relevant to Health Maintenance Results * SCAN - LABS (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) us Provider Scanning Final Result * SCAN - LABS (07/22/2025 2:55 PM CDT) us Provider Scanning Final Result * SCAN - LABS (07/22/2025 11:39 AM CDT) Provider Scanning Final Result * SCAN - LABS (07/17/2025 7:24 AM CDT) us Provider Scanning Final Result * MAMMOGRAPHY (10/05/2022) Mammography Normal Historical Provider HEALTH MAINTENANCE Final Result * COLONOSCOPY (09/28/2021) Scribed HM Colonoscopy Normal Historical Provider HEALTH MAINTENANCE Final Result from Last 3 Months or Most Recently Relevant to Health Maintenance Insurance [facility] Care Teams Sizing Sprayer Relationship Specialty Start Date End Date Louis Kauffman MD PCP - General 04/27/09
== END 2025-09-10 15:30 | disposition home or self-care (01) ==
LOC: ANHFOHIMG 15:31
PROVIDERS: PCP Internal Medicine; Visit Provider Obstetrics & Gynecology
DX: Z12.31 Encounter for screening mammogram for malignant neoplasm of breast (principal)
CPT/HCPCS: 77063; 77067